=== PATIENT | male | born 1995 | race African-American/Black ===

== ENCOUNTER 2020-04-13 19:13 | Emergency (ER) | payer OTHER ==
[~2020-04-13] VITALS: Ht 182.9 cm; Wt 74.8 kg
[2020-04-13] MEDS ORDERED: ALBUTEROL/IPRATROPIUM 3 ML NEB NEB ONE (19:30)
[2020-04-13] MEDS ORDERED: PREDNISONE 20 MG TAB PO ONE (19:30)
[2020-04-13] MEDS ORDERED: LORATADINE 10 MG TAB ONE (19:31)
[2020-04-13] MEDS ORDERED: PREDNISONE 10 MG TAB ONE (19:32)
[2020-04-13] MEDS ORDERED: PREDNISONE 20 MG TAB ONE (19:32)
[2020-04-13] MEDS ORDERED: PROVENTIL HFA6.7 GM INH (20:19)
[2020-04-14] MEDS ORDERED: LORATADINE 10 MG TAB PO SCH (09:00)
== END 2020-04-13 20:25 | disposition home or self-care (01) ==
LOC: ER 19:16
DX: J45.901 Unspecified asthma with (acute) exacerbation (principal); R06.02 Shortness of breath; L30.9 Dermatitis, unspecified
CPT/HCPCS: 94640; 99283; J7512 ×2